=== PATIENT | female | born 1995 | race Two or more races ===

== ENCOUNTER 2016-11-12 17:03 | Emergency (ER) | payer OTHER ==
--- NOTE | 2016-11-12 17:11 | EDPHY ---
H & P HPI/ROS: HPI CHIEF COMPLAINT: Acute anxiety HISTORY OF PRESENT ILLNESS: This patient very pleasant 21-year-old female she presents emergency room by EMS for acute anxiety attack. Patient states for the past 2 weeks she has been having increasing anxiety she does not take any daily medications for this. She tells me that she was at work she got overwhelmed she got very anxious she had tingling all over body she began to hyperventilate. She had spasms of both of her hands. She presents emergency room with carpal spasm and feeling anxious. She denies any focal complaint. She states that the tingling in her extremities has resolved. Past Medical History: thyroid disease Past Surgical History: No significant surgical history Social History: Endorses marijuana use, occasional alcohol, denies tobacco or other illicit drugs Family History: Noncontributory ROS REVIEW OF SYSTEMS: A comprehensive 10 point review of systems is otherwise negative aside from elements mentioned in the history of present illness. Exam Constitutional triage nursing summary reviewed, vital signs reviewed, awake/ alert. Eyes normal conjunctivae and sclera, EOMI, PERRLA. HENT normal inspection, atraumatic, moist mucus membranes, no epistaxis, neck supple/ no meningismus, no raccoon eyes. Respiratory clear to auscultation bilaterally, normal breath sounds, no respiratory distress, no wheezing. Cardiovascular rate normal, regular rhythm, no murmur, no edema, distal pulses normal. Gastrointestinal soft, non-tender, no rebound, no guarding, normal bowel sounds, no distension, no pulsatile mass. Genitourinary no CVA tenderness. Musculoskeletal no midline vertebral tenderness, full range of motion, no calf swelling, no tenderness of extremities, no meningismus, good pulses, neurovascularly intact. Skin pink, warm, & dry, no rash, skin atraumatic. Neurologic awake, alert and oriented x 3, AAOx3, moves all 4 extremities equally, motor intact, sensory intact, CN II-XII intact, normal cerebellar, normal vision, normal speech. Psychiatric normal mood/affect. Heme/Lymph/Immune no lymphadenopathy. Differential Diagnosis: acute anxiety attack, panic attack, electrolyte abnormality, Medical Decision Making: Patient be given 1 mg p. o. Ativan and see if this improves her symptoms. She does tell me that her anxiety is improving as she is sitting here. Re-evaluation: 1754: Re-examination at this time patient was given 1 mg p. o. Ativan she is feeling much better. Her spasms of her hand have resolved. She is ready go home. She does understand if she has return of anxiety or does not feel well she should return emergency room. Source: Patient Constitutional: Initial Vital Signs Temperature (C) 36.5 C 11/12/16 17:03 Heart Rate 80 11/12/16 17:03 Respiratory Rate 16 11/12/16 17:03 Blood Pressure 105/74 11/12/16 17:03 O2 Sat (%) 96 11/12/16 17:03 O2 Delivery Mode Room Air Allergies/Adverse Reactions: No Known Allergies Allergy (Unverified 11/12/16 17:13) Home Medications: Medication Instructions Recorded NK [No Known Home Meds] 11/12/16 Medical Decision Making - Data Points Medications Given: Discontinued Medications Lorazepam (Ativan) 1 mg PO EDNOW ONE Stop: 11/12/16 17:31 Last Admin: 11/12/16 17:33 Dose: 1 mg Departure - Departure Disposition: Home, Routine, Self-Care Clinical Impression: Anxiety Condition: Good Instructions: Anxiety (ED) Additional Instructions: 1. Stay well-hydrated. 2. return to the emergency room if develops any worsening symptoms questions or concerns. Referrals: Patient,NotPresent [Primary Care Provider] - As per Instructions
[2016-11-12] MEDS ORDERED: NS 1,000 ML IV ONE (17:19)
[2016-11-12] MEDS ORDERED: LORazepam 2 MG/ML INJ IVP ONE (17:19)
[2016-11-12] MEDS ORDERED: LORazepam 1 MG TAB ONE (17:28)
[2016-11-12] MEDS ORDERED: LORazepam 1 MG TAB PO ONE (17:30)
[2016-11-12 18:02] VITALS: BP 124/72; PULSE 55; RESP 14; TEMP 97.9; O2SAT 97
== END 2016-11-12 18:06 | disposition home or self-care (01) ==
LOC: EDUNIT#
DX: F41.9 Anxiety disorder, unspecified (principal)

== ENCOUNTER 2018-04-01 12:46 | Emergency (ER) | payer OTHER ==
[2018-04-01] MEDS ORDERED: NS 1,000 ML IV ONE ×2 (12:59→17:17)
--- NOTE | 2018-04-01 13:10 | EDPHY ---
H & P Stated Complaint: RLQ ABD PAIN FOR 8 HRS Time Seen by Provider: 04/01/18 12:58 HPI/ROS: CHIEF COMPLAINT: Right lower quadrant pain HISTORY OF PRESENT ILLNESS: 22-year-old female SAB 2 presents with severe right lower quadrant pain. Onset of severe RLQ pain in the middle of the night last night. The pain is 9/10 and increases with any movement. No associated symptoms; no vomiting, diarrhea, fever, urinary sx or vaginal discharge. Last menstrual period was 4 months ago. Menstrual periods are usually irregular. Sexually active, unprotected. REVIEW OF SYSTEMS: complete 10 point ROS negative except at noted in the HPI - Personal History LMP (Females 10-55): Over 28 Days Ago Current Tetanus Diphtheria and Acellular Pertussis (TDAP): Yes - Medical/Surgical History Hx Asthma: No Hx Chronic Respiratory Disease: No Hx Diabetes: No Hx Cardiac Disease: No Hx Renal Disease: No Hx Cirrhosis: No Hx Alcoholism: No Hx HIV/AIDS: No Hx Splenectomy or Spleen Trauma: No Other PMH: pmh- "overacted thyroid". psh- L shoulder - Social History Smoking Status: Current some day smoker Alcohol Use: Sober - Physical Exam Exam: General Appearance: Alert, pleasant Eyes: Pupils equal and round, no conjunctival pallor ENT, Mouth: Mucous membranes moist Neck: Normal inspection Respiratory: Lungs are clear to auscultation Cardiovascular: Regular rate and rhythm Gastrointestinal: Abdomen is diffusely tender, especially right lower quadrant , normal BS Neurological: A&O, nonfocal, normal gait Skin: Warm and dry Extremities: Normal inspection Psychiatric: Mood and affect normal Constitutional: Initial Vital Signs Temperature (C) 36.8 C 04/01/18 12:49 Heart Rate 95 04/01/18 12:49 Respiratory Rate 18 04/01/18 12:49 Blood Pressure 83/53 L 04/01/18 12:49 O2 Sat (%) 96 04/01/18 12:49 O2 Delivery Mode Room Air Allergies/Adverse Reactions: No Known Allergies Allergy (Verified 04/01/18 12:49) Home Medications: Medication Instructions Recorded Hydrocodone/APAP 5/325 [[place] 1 - 2 tab PO Q4H PRN #10 tab 04/01/18 5/325] levOFLOXACIN [levAQUIN (*)] 750 mg PO DAILY #10 tab 04/01/18 metroNIDAZOLE [Flagyl 500 mg (*)] 500 mg PO BID #20 tab 04/01/18 Medical Decision Making - Diagnostics Imaging Results: Imaging Impressions Pelvic/Renal Ultrasound 04/01/18 13:06 Impression: The appendix is not visualized, however, there are no definite findings to support a clinical diagnosis of acute appendicitis. Ultrasound Pelvis Complete (Transabdominal and Endovaginal) History: Pelvic and right lower quadrant pain in a 22-year-old female.. Technique: Transabdominal and endovaginal ultrasound images were obtained. Endovaginal images obtained for better evaluation of the uterine myometrium and adnexa. Color and pulsed Doppler was performed to assess flow. Findings: The uterus is normal in size and measures 5.9 x 2.6 x 4.3 cm. The endometrial measures 0.5 cm in thickness. [No uterine masses are seen.] The right ovary measures 3.6 x 2.4 x 1.9 cm, volume of 8.5 mL. The left ovary measures 5.9 x 2.6 x 4.3 cm. Volume of 13.9 mL. Numerous follicles are seen bilaterally, more extensive on the left. Color and pulsed Doppler flow is identified in both ovaries . [No adnexal masses are seen.] [There is no free fluid.] Impression: Numerous follicular cysts are noted bilaterally, with increased left ovarian volume. Are there clinical findings to suggest polycystic ovary syndrome? Results called and discussed with Dr. Maribel Franco on April 01, 2018 at 1455 hours. Abdomen Ultrasound 04/01/18 13:25 Impression: The appendix is not visualized, however, there are no definite findings to support a clinical diagnosis of acute appendicitis. Ultrasound Pelvis Complete (Transabdominal and Endovaginal) History: Pelvic and right lower quadrant pain in a 22-year-old female.. Technique: Transabdominal and endovaginal ultrasound images were obtained. Endovaginal images obtained for better evaluation of the uterine myometrium and adnexa. Color and pulsed Doppler was performed to assess flow. Findings: The uterus is normal in size and measures 5.9 x 2.6 x 4.3 cm. The endometrial measures 0.5 cm in thickness. [No uterine masses are seen.] The right ovary measures 3.6 x 2.4 x 1.9 cm, volume of 8.5 mL. The left ovary measures 5.9 x 2.6 x 4.3 cm. Volume of 13.9 mL. Numerous follicles are seen bilaterally, more extensive on the left. Color and pulsed Doppler flow is identified in both ovaries . [No adnexal masses are seen.] [There is no free fluid.] Impression: Numerous follicular cysts are noted bilaterally, with increased left ovarian volume. Are there clinical findings to suggest polycystic ovary syndrome? Results called and discussed with Dr. Maribel Franco on April 01, 2018 at [address] 04/01/18 14:57 Impression: 1. Mild focal colitis of the ascending colon, likely diverticulitis. 2. Normal appendix. 3. Trace free fluid in the pelvis. No abscess. Findings discussed with Emergency Department physician, Maribel Franco M.D., on April 01, 2018 at 1615. ED Course/Re-evaluation: This patient presents with severe right lower quadrant pain, hypotension and peritoneal signs, concerning for ectopic . Stat urine test is negative. Pelvic ultrasound ordered. IV normal saline 1 L given for hypotension. Pelvic sono reveals multiple ovarian follicles, c/w PCOS; appendix not visualized. CT abd/pelvis ordered. CT scan results discussed with the patient. I advised admission because of acute diverticulitis and degree of pain. However the patient declines. She prefers to go home. Toradol 15 mg IV given. Levaquin and Flagyl orally given. After IV Toradol, the patient had difficulty walking because of pain. I strongly advised admission and she concurred. The hospitalist service was consulted for admission. 1845: The patient wants to go home. Her parents were in the room and agree with this plan. Abdominal exam reveals right lower quadrant tenderness, no peritoneal signs. She ambulates with a steady gait, is not dizzy and does not appear in pain. She understands that I feel that she should be admitted for further eval and treatment. BP 94/65, HR 95 on discharge. Pt and parents understand concern about low BP. However, she continues to decline admission and her family concurs. Will follow up with Gastroenterology as an outpatient. Will return for worsening symptoms or any concerns. Differential Diagnosis: Differential diagnosis includes though it is not limited to ectopic , ovarian cyst, ovarian torsion, PID, UTI, appendicitis. - Data Points Laboratory Results: Laboratory Results 04/01/18 13:30 04/01/18 13:30 04/01/18 04/01/18 04/01/18 13:30 13:30 13:30 WBC RBC Hgb Hct MCV MCH MCHC RDW Plt Count MPV Neut % (Auto) Lymph % (Auto) [place] % (Auto) Eos % (Auto) Baso % (Auto) Nucleat RBC Rel Count Absolute Neuts (auto) Absolute Lymphs (auto) Absolute Monos (auto) Absolute Eos (auto) Absolute Basos (auto) Absolute Nucleated RBC Immature Gran % Immature Gran # Sodium 141 mEq/L mEq/L (135-145) Potassium 3.8 mEq/L mEq/L (3.3-5.0) Chloride 105 mEq/L mEq/L (97-110) Carbon Dioxide 22 mEq/l mEq/l (22-31) Anion Gap 14 mEq/L mEq/L (8-16) BUN 12 mg/dL mg/dL (7-23) Creatinine 0.9 mg/dL mg/dL (0.6-1.0) Estimated GFR > 60 Glucose 87 mg/dL mg/dL (70-100) Calcium 9.4 mg/dL mg/dL (8.5-10.4) Procalcitonin 0.07 ng/mL ng/mL (0.02-0.10) Beta HCG, Qual NEGATIVE Urine Color Urine Appearance Urine pH Ur Specific [place] Urine Protein Urine Ketones Urine Blood Urine Nitrate Urine Bilirubin Urine Urobilinogen Ur Leukocyte Esterase Urine RBC Urine WBC Ur Epithelial Cells Urine Mucus Urine Glucose 04/01/18 04/01/18 13:30 13:12 WBC 12.75 10^3/uL H 10^3/uL (3.80-9.50) RBC 5.03 10^6/uL 10^6/uL (4.18-5.33) Hgb 15.2 g/dL g/dL (12.6-16.3) Hct 43.6 % % (38.0-47.0) MCV 86.7 fL fL (81.5-99.8) MCH 30.2 pg pg (27.9-34.1) MCHC 34.9 g/dL g/dL (32.4-36.7) RDW 11.8 % % (11.5-15.2) Plt Count 217 10^3/uL 10^3/uL (150-400) MPV 9.6 fL fL (8.7-11.7) Neut % (Auto) 81.5 % H % (39.3-74.2) Lymph % (Auto) 10.2 % L % (15.0-45.0) [place] % (Auto) 7.5 % % (4.5-13.0) Eos % (Auto) 0.2 % L % (0.6-7.6) Baso % (Auto) 0.2 % L % (0.3-1.7) Nucleat RBC Rel Count 0.0 % % (0.0-0.2) Absolute Neuts (auto) 10.40 10^3/uL H 10^3/uL (1.70-6.50) Absolute Lymphs (auto) 1.30 10^3/uL 10^3/uL (1.00-3.00) Absolute Monos (auto) 0.96 10^3/uL H 10^3/uL (0.30-0.80) Absolute Eos (auto) 0.02 10^3/uL L 10^3/uL (0.03-0.40) Absolute Basos (auto) 0.02 10^3/uL 10^3/uL (0.02-0.10) Absolute Nucleated RBC 0.00 10^3/uL 10^3/uL (0-0.01) Immature Gran % 0.4 % % (0.0-1.1) Immature Gran # 0.05 10^3/uL 10^3/uL (0.00-0.10) Sodium Potassium Chloride Carbon Dioxide Anion Gap BUN Creatinine Estimated GFR Glucose Calcium Procalcitonin Beta HCG, Qual Urine Color YELLOW Urine Appearance HAZY Urine pH 8.0 H (5.0-7.5) Ur Specific [place] 1.023 (1.002-1.030) Urine Protein 1+ H (NEGATIVE) Urine Ketones NEGATIVE (NEGATIVE) Urine Blood NEGATIVE (NEGATIVE) Urine Nitrate NEGATIVE (NEGATIVE) Urine Bilirubin NEGATIVE (NEGATIVE) Urine Urobilinogen NEGATIVE EU EU (0.2-1.0) Ur Leukocyte Esterase NEGATIVE (NEGATIVE) Urine RBC NONE SEEN /hpf /hpf (0-3) Urine WBC 0-1 /hpf /hpf (0-3) Ur Epithelial Cells 1+ /lpf /lpf (NONE-1+) Urine Mucus 3+ /lpf H /lpf (NONE-1+) Urine Glucose NEGATIVE (NEGATIVE) Medications Given: Discontinued Medications Sodium Chloride (Ns) 1,000 mls @ 0 mls/hr IV EDNOW ONE; Wide Open PRN Reason: Protocol Stop: 04/01/18 13:00 Last Admin: 04/01/18 13:39 Dose: 1,000 mls Ceftriaxone Sodium/Dextrose (Rocephin 1 Gm (Premix)) 50 mls @ 100 mls/hr IV EDNOW ONE PRN Reason: Protocol Stop: 04/01/18 16:46 Last Admin: 04/01/18 16:50 Dose: Not Given Metronidazole/Sodium Chloride (Flagyl 500 Mg (Premix)) 100 mls @ 100 mls/hr IV EDNOW ONE PRN Reason: Protocol Stop: 04/01/18 17:17 Last Admin: 04/01/18 16:50 Dose: Not Given Sodium Chloride (Ns) 1,000 mls @ 0 mls/hr IV ONCE ONE; Wide Open PRN Reason: Protocol Stop: 04/01/18 17:18 Last Admin: 04/01/18 17:55 Dose: 1,000 mls Ketorolac Tromethamine (Toradol) 15 mg IVP EDNOW ONE Stop: 04/01/18 16:26 Last Admin: 04/01/18 16:41 Dose: 15 mg Levofloxacin (Levaquin) 500 mg PO EDNOW ONE PRN Reason: Protocol Stop: 04/01/18 16:27 Last Admin: 04/01/18 16:47 Dose: 500 mg Metronidazole (Flagyl) 500 mg PO EDNOW ONE PRN Reason: Protocol Stop: 04/01/18 16:27 Last Admin: 04/01/18 16:47 Dose: 500 mg Point of Care Test Results: Urine Collection Date 04/01/18 Collection Time 12:40 HCG Results Negative Departure - Departure Disposition: Home, Routine, Self-Care Clinical Impression: Diverticulitis large intestine Qualifiers: Diverticulitis bleeding: without bleeding Diverticulitis complication: without perforation or abscess Qualified Code(s): K57.32 - Diverticulitis of large intestine without perforation or abscess without bleeding Condition: Good Instructions: Diverticulitis (ED), Diverticulitis Diet (ED) Additional Instructions: Return for worsening symptoms or any concerns. Follow-up in 1-2 days for recheck. Referrals: Luan Sarmiento MD [Medical Doctor] - As per Instructions (Call to make an appointment.) Shannan Curtis MD [place] [place] - 1-2 days without fail Stand Alone Forms: Work Excuse Prescriptions: Hydrocodone/APAP 5/325 [[place] 5/325] 1 - 2 tab PO Q4H PRN #10 tab PRN Reason: Pain, Moderate levOFLOXACIN [levAQUIN (*)] 750 mg PO DAILY #10 tab metroNIDAZOLE [Flagyl 500 mg (*)] 500 mg PO BID #20 tab
[2018-04-01 13:44] LABS: PLATELET COUNT 217 10^3/uL (150-400)
[2018-04-01] MEDS ORDERED: IOPAMIDOL (ISOVUE-300) 100 ML BTL ONE (15:27)
[2018-04-01] MEDS ORDERED: KETOROLAC 15 MG/1 ML SDV IVP ONE (16:25)
[2018-04-01] MEDS ORDERED: metroNIDAZOLE 500 MG TAB PO ONE (16:26)
[2018-04-01] MEDS ORDERED: ONDANSETRON 4 MG/2 ML VIAL IVP PRN (18:36)
[2018-04-01] MEDS ORDERED: ACETAMINOPHEN 325 MG TAB PO PRN (18:36)
[2018-04-01] MEDS ORDERED: ONDANSETRON DISINTEGRATING 4 MG TAB PO PRN (18:36)
[2018-04-01] MEDS ORDERED: levOFLOXACIN 250 MG/DEXTROSE 50 ML IV ONE (18:38)
[2018-04-01] MEDS ORDERED: NS 1,000 ML IV SCH (18:45)
[2018-04-01 19:07] VITALS: BP 94/65
== END 2018-04-01 19:07 | disposition home or self-care (01) ==
LOC: UNDOADMOB 17:23
DX: K57.32 Diverticulitis of large intestine without perforation or abscess without bleeding (principal); E86.9 Volume depletion, unspecified; F17.200 Nicotine dependence, unspecified, uncomplicated
CPT/HCPCS: 96374; J1885; Q9967